=== PATIENT | female | born 1965 | race Caucasian/White ===

== ENCOUNTER 2018-08-13 11:01 | Emergency (ER) | payer BC ==
--- NOTE | 2018-08-13 11:54 | RAD REPORT ---
EXAM DESCRIPTION: CT - Head Brain Wo Cont - 08/13/2018 11:49 am CLINICAL HISTORY: Bilateral lower extremity paresthesias COMPARISON: None. TECHNIQUE: Axial 5 mm thick images of the head were obtained without IV contrast. All CT scans are performed using dose optimization technique as appropriate and may include automated exposure control or mA/KV adjustment according to patient size. FINDINGS: No intracranial hemorrhage, mass, edema or shift of mid-line structures. No acute infarcti on changes seen. No abnormal extra-axial fluid collections. Ventricles are normal. Mastoid air cells and visualized portions of the paranasal sinuses are clear. No acute bony findings. IMPRESSION: Negative non-contrast CT head examination.
[2018-08-13 12:12] LABS: Protime INR 0.9
[2018-08-13 12:13] LABS: Absolute Lymphocytes (CBC) 4.1 K/uL (0.7-4.9); Absolute Monocytes 0.5 K/uL (0.1-1.3); Absolute Neutrophil 6.2 K/uL (1.8-8.0); Basophils % 0.9 % (0-1.3); Lymphocytes % 37.1 % (15.3-44.8); MPV 10.7 fL (7.6-11.3); Monocytes % 4.7 % (3.3-12.3)
[2018-08-13 12:36] LABS: ALT/SGPT 26 U/L (12-78); AST/SGOT 27 U/L (15-37); Albumin 4.4 g/dL (3.4-5.0); Alkaline Phosphatase 79 U/L (45-117); BUN Blood Urea Nitrogen 10 mg/dL (7-18); Bicarbonate 25 mmol/L (21-32); Bilirubin Direct 0.1 mg/dL (0-0.2); Bilirubin Total 0.4 mg/dL (0.2-1.0); CKMB Creatine Kinase MB 1.7 ng/mL (0.3-3.6); Creatine Phosphokinase 118 U/L (26-192); Glucose Level 77 mg/dL (74-106); Magnesium 2.4 mg/dL (1.8-2.4); NT PRO-BNP 69 pg/mL (<125); Potassium 3.6 mmol/L (3.5-5.1); Sodium Level 136 mmol/L (136-145); Troponin (Emerg Dept Use Only) < 0.02 ng/mL (0.0-0.045)
[2018-08-13 12:37] LABS: Urine Blood NEGATIVE (NEG); Urine Glucose NEGATIVE (NEG); Urine Protein NEGATIVE (NEG); Urine Specific Gravity <1.005 (1.005-1.030)
[2018-08-13 12:39] LABS: Blood Morphology Comment NOT SEEN (NOT SEEN); Platelet Estimate ADEQ; Urine White Blood Cell Casts OK
[2018-08-13] MEDS ORDERED: ASPIRIN 81 MG CHEWABLE TABLET ONE (12:51)
--- NOTE | 2018-08-13 14:01 | EKG ---
Test Date: 2018-08-13 Test Time: 12:05:26 Voice Studies Director: NIELS MEASUREMENT RESULTS: Intervals: Rate: 64 AK: 116 QRSD: 76 QT: 406 QTc: 418 Hyrum: P: 61 AK: 116 QRS: 39 T: 35 INTERPRETIVE STATEMENTS: Normal sinus rhythm Normal ECG No previous ECG available for comparison Electronically Signed On 08-13-18 14:00:22 CDT by Joe Palacios
--- NOTE | 2018-08-13 15:22 | RAD REPORT ---
EXAM DESCRIPTION: MRI - Lumbar Spine Wo Con - 08/13/2018 2:56 pm CLINICAL HISTORY: Bilateral leg numbness COMPARISON: None. TECHNIQUE: Sagittal T1, T2 and STIR weighted sequences were obtained. Axial T1 and T2 sequences were obtained through the lumbar disc levels. FINDINGS: L1-2 is unremarkable Mild spondylosis L2-3 Small left lateral disc herniation L3-4 narrows the left neural foramina Mild anterior subluxation L4 on L5. Disc bulge and facet hypertrophy result in narrowing of the theca l sac which measures 6 millimeters. Tiny central disc herniation. Moderate narrowing of the neural fo ramina bilaterally L5-S1 unremarkable Increased signal within the superior vertebral endplates of L3 and L4 may be degenerative in nature IMPRESSION: Mild anterior subluxation L4-L5 in combination with tiny central disc herniation spondyl osis resulting in moderate central and moderate bilateral foraminal stenosis Small left lateral disc herniation L3-4
--- NOTE | 2018-08-13 16:23 | ER ---
Nurse's Notes [facility] Name: Nicky Enrique Age: 53 yrs Sex: Female : 1965 Arrival Date: 08/13/2018 Time: 11:05 Bed 16 Private MD: Diagnosis: Elevated blood-pressure reading, without diagnosis of hypertension;Spondylolysis, lumbar region;Paresthesia of skin-Left and right legs Presentation: 08/13 11:11 Presenting complaint: EMS states: numbness and tingling in both feet that goes up both em thighs, described as "ants going up legs" on scene BP 197/112 HR 69 BLG 65, denies chest pain, NEW, dizziness, N/V. Transition of care: patient was not received from another setting of care. Onset of symptoms was August 13, 2018. Risk Assessment: Do you want to hurt yourself or someone else? Patient reports no desire to harm self or others. Initial Sepsis Screen: Does the patient meet any 2 criteria? No. Patient's initial sepsis screen is negative. Does the patient have a suspected source of infection? No. Patient's initial sepsis screen is negative. Care prior to arrival: None. 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 - Social history:: Smoking status: Patient/guardian denies using tobacco. - Ebola Screening: : Patient negative for fever greater than or equal to 101.5 degrees Fahrenheit, and additional compatible Ebola Virus Disease symptoms Patient denies exposure to infectious person Patient denies travel to an Ebola-affected area in the 21 days before illness onset No symptoms or risks identified at this time. Screenin:09 VAN Screening: Arm Drift: Patient shows no arm weakness. Patient is VAN negative. sg Visual Disturbance: No visual disturbance noted. Aphasia: No aphasia noted. Neglect: No neglect noted. Assessment: 11:15 General: Appears in no apparent distress. slender, well groomed, well developed, well sg nourished, Behavior is calm, cooperative, appropriate for age. Pain: Denies pain. Neuro: Level of Consciousness is awake, alert, obeys commands, Oriented to person, place, time, Stretcher And Drier are equal bilaterally Moves all extremities. Full function Gait is steady, Speech is normal, Facial symmetry appears normal, Pupils are PERRLA, Reports paresthesias in right foot, left foot, right leg and left leg. Cardiovascular: Heart tones S1 S2 present Capillary refill is brisk in bilateral fingers Chest pain is denied. Respiratory: Airway is patent Respiratory effort is even, unlabored, Respiratory pattern is regular, symmetrical. GI: Abdomen is flat, non-distended. : No signs and/or symptoms were reported regarding the genitourinary system. EENT: No signs and/or symptoms were reported regarding the EENT system. Derm: Skin is pink, warm \\T\\ dry. Musculoskeletal: No signs and/or symptoms reported regarding the musculoskeletal system. 13:13 Reassessment: Patient appears in no apparent distress at this time. Patient and/or sg family updated on plan of care and expected duration. Pain level reassessed. Patient is alert, oriented x 3, equal unlabored respirations, skin warm/dry/pink. coreypage at bedside updating pt on POC and results, pt awaiting MRI at this seda. 14:39 Reassessment: pt remains off the unit in MRI at this time. sg 16:00 Reassessment: Patient appears in no apparent distress at this time. Patient and/or sg family updated on plan of care and expected duration. Pain level reassessed. Patient is alert, oriented x 3, equal unlabored respirations, skin warm/dry/pink. reports numbness and tingling in the legs and feet remains, has not worsened Patient states feeling better. Vital Signs: 11:07 BP 159 / 109; Pulse 62; Resp 17; Pulse Ox 100% on R/A; Weight 52.16 kg; Height 5 ft. 2 em in. (157.48 cm); Pain 0/10; 11:19 Temp 98.3; sg 12:20 BP 164 / 97; Pulse 72; Resp 17; Temp 98.9(TE); Pulse Ox 100% on R/A; mh5 13:00 BP 170 / 87; Pulse 64; Resp 16; Temp 97.9(O); Pulse Ox 100% on R/A; mh5 14:32 BP 160 / 86; Pulse 60; Resp 16; Temp 98.9(TE); Pulse Ox 100% on R/A; mh5 15:46 BP 151 / 90; Pulse 62; Resp 16; Pulse Ox 99% on R/A; mh5 11:07 Body Mass Index 21.03 (52.16 kg, 157.48 cm) em ED Course: 11:05 Patient arrived in ED. sg 11:05 Arm band placed on. sg 11:14 Sohail García, RN is Primary Nurse. sg 11:15 No provider procedures requiring assistance completed. sg 11:20 Patient has correct armband on for positive identification. Placed in gown. Bed in low mh5 position. Call light in reach. Side rails up X 1. Adult w/ patient. Warm blanket given. Pulse ox on. NIBP on. 11:21 Caleb Reaves PA is PHCP. cp 11:21 Yazan Joiner MD is Attending Physician. cp 11:22 Triage completed. sg 11:40 Initial lab(s) drawn, by me, sent to lab. Missed attempt(s): 22 gauge in left sg antecubital area. Bleeding controlled, band aid applied, catheter tip intact. 11:50 CT Head Brain wo Cont In Process Unspecified. EDMS 14:30 Patient moved to MRI via wheelchair. em2 14:46 MRI Lumbar Spine wo Con In Process Unspecified. EDMS 14:59 Patient moved back from [facility]. sg 16:19 Ernesto Rizo MD is Referral Physician. cp Administered Medications: 12:37 Drug: Aspirin Chewable Tablet 324 mg Route: PO; sg 13:00 Follow up: Response: No adverse reaction sg 16:30 Not Given (Other Intervention Used): NS 0.9% 1000 ml IV at 1 bolus Per protocol; 1000 sg mL bolus Point of Care Testing: Blood Glucose: 11:19 Blood Glucose: 76 mg/dL; sg Ranges: Outcome: 16:22 Discharge ordered by . cp 16:44 Patient left the ED. ms Signatures: Dispatcher [employer] EDMS Sohail García, RN RN sg Moose Gu, DEVELOPMENT COACH DEVELOPMENT COACH em BenjaminDanielle ms, Enrique em2 Caleb Reaves PA PA cp Martinez, Maria 5 Corrections: (The following items were deleted from the chart) 11:13 11:07 BP 159 / 109; Pulse 62bpm; Resp 17bpm; Pulse Ox 100% RA; sg em
--- NOTE | 2018-08-13 16:23 | EDPHYS ---
Physician Documentation [facility] Name: Nicky Enrique Age: 53 yrs Sex: Female : 1965 Arrival Date: 08/13/2018 Time: 11:05 Bed 16 Private MD: ED Physician Yazan Joiner HPI: 08/13 11:35 This 53 yrs old Female presents to ER via EMS with complaints of High Blood cp Pressure. 11:35 The patient has elevated blood pressure and discovered this at work. cp 11:35 Onset: The symptoms/episode began/occurred this morning. cp 11:35 Associated signs and symptoms: Pertinent positives: numbness bilateral legs to upper cp thigh level started this morning about 0600. Patient noticed while putting pants on to get dressed for work. 11:35 Severity of symptoms: At its worst the blood pressure was 197 mm Hg. 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 - Social history:: Smoking status: Patient/guardian denies using tobacco. - Ebola Screening: : Patient negative for fever greater than or equal to 101.5 degrees Fahrenheit, and additional compatible Ebola Virus Disease symptoms Patient denies exposure to infectious person Patient denies travel to an Ebola-affected area in the 21 days before illness onset No symptoms or risks identified at this time. ROS: 11:40 Constitutional: Negative for body aches, chills, fever, poor PO intake. cp 11:40 Eyes: Negative for injury, pain, redness, and discharge. cp 11:40 ENT: Negative for drainage from ear(s), ear pain, sore throat, difficulty swallowing, difficulty handling secretions. 11:40 Cardiovascular: Negative for chest pain, edema, palpitations. 11:40 Respiratory: Negative for cough, shortness of breath, wheezing. 11:40 Abdomen/GI: Negative for abdominal pain, nausea, vomiting, and diarrhea, constipation, black/tarry stool, rectal bleeding, bowel incontinence. 11:40 Back: Negative for pain at rest, pain with movement, radiated pain. 11:40 : Negative for urinary symptoms, difficulty urinating, bladder incontinence. 11:40 MS/extremity: Negative for injury or acute deformity, decreased range of motion. 11:40 Skin: Negative for cellulitis, rash. 11:40 Neuro: Positive for of the right leg and left leg, decreased sensation, Negative for altered mental status, headache, weakness. 11:40 All other systems are negative. Exam: 11:45 Constitutional: The patient appears in no acute distress, alert, awake, cp non-diaphoretic, non-toxic, well developed, well nourished. 11:45 Head/Face: Normocephalic, atraumatic. cp 11:45 Eyes: Periorbital structures: appear normal, Pupils: equal, round, and reactive to light and accomodation, Extraocular movements: intact throughout, Conjunctiva: normal, no exudate, no injection, Lids and lashes: appear normal, bilaterally. 11:45 ENT: External ear(s): are unremarkable, Ear canal(s): are normal, clear, TM's: bulging, is not appreciated, bilaterally, dullness, bilaterally, erythema, is not appreciated, bilaterally, Nose: is normal, Mouth: Lips: moist, Oral mucosa: pink and intact, moist, Posterior pharynx: is normal, airway is patent, no erythema, no exudate. 11:45 Neck: ROM/movement: is normal, is supple, without pain, no range of motions limitations, no meningismus, no nuchal rigidity. 11:45 Chest/axilla: Inspection: normal, Palpation: is normal, no crepitus, no tenderness. 11:45 Cardiovascular: Rate: normal, Rhythm: regular, Edema: is not appreciated, JVD: is not appreciated. 11:45 Respiratory: the patient does not display signs of respiratory distress, Respirations: normal, no use of accessory muscles, no retractions, no splinting, no tachypnea, labored breathing, is not present, Breath sounds: are clear throughout, no decreased breath sounds, no stridor, no wheezing. 11:45 Abdomen/GI: Inspection: abdomen appears normal, Palpation: abdomen is soft and non-tender, in all quadrants. 11:45 Back: pain, is absent, ROM is normal, Straight leg raises: of both lower extremities does not illicit pain. 11:45 Musculoskeletal/extremity: Pulses: noted to be 2+ in the right radial artery, right dorsalis pedis artery, left radial artery and left dorsalis pedis artery, the right leg and left leg decreased sensation. 11:45 Skin: no rash present. 11:45 Neuro: Orientation: to person, place \T\ time. Mentation: is normal, Cerebellar function: Romberg testing is negative, normal finger to nose testing, heel to powers testing is normal, Motor: moves all fours, strength is normal, Gait: is steady, Deep tendon reflexes are 2+ (normal) in the right patellar, right Achilles, left patellar and left Achilles. 12:10 ECG was reviewed by the Attending Physician. cp Vital Signs: 11:07 BP 159 / 109; Pulse 62; Resp 17; Pulse Ox 100% on R/A; Weight 52.16 kg; Height 5 ft. 2 em in. (157.48 cm); Pain 0/10; 11:19 Temp 98.3; sg 12:20 BP 164 / 97; Pulse 72; Resp 17; Temp 98.9(TE); Pulse Ox 100% on R/A; mh5 13:00 BP 170 / 87; Pulse 64; Resp 16; Temp 97.9(O); Pulse Ox 100% on R/A; mh5 14:32 BP 160 / 86; Pulse 60; Resp 16; Temp 98.9(TE); Pulse Ox 100% on R/A; mh5 15:46 BP 151 / 90; Pulse 62; Resp 16; Pulse Ox 99% on R/A; mh5 11:07 Body Mass Index 21.03 (52.16 kg, 157.48 cm) em MDM: 11:21 Patient medically screened. cp 12:00 Differential diagnosis: hypertensive crisis, Malignant HTN, CVA, intracerebral cp hemorrhage, spinal stenosis, cauda equina, bulging disc. 16:21 Data reviewed: vital signs, nurses notes, lab test result(s), EKG, radiologic studies, cp CT scan, MRI. 16:21 Test interpretation: by ED physician or midlevel provider: ECG. Counseling: I had a cp detailed discussion with the patient and/or guardian regarding: the historical points, exam findings, and any diagnostic results supporting the discharge/admit diagnosis, the presence of at least one elevated blood pressure reading (>120/80) during this emergency department visit, lab results, radiology results, the need for outpatient follow up, a family practitioner, a neurosurgeon, to return to the emergency department if symptoms worsen or persist or if there are any questions or concerns that arise at home. Response to treatment: the patient's symptoms have mildly improved after treatment, and as a result, I will discharge patient. ED course: VSS. Blood pressure improved. Will discharge to home for continued monitoring. 08/13 11:34 Order name: Basic Metabolic Panel; Complete Time: 13:10 cp 08/13 11:34 Order name: CBC with Diff; Complete Time: 13:10 cp 08/13 13:09 Interpretation: Normal except: WBC 11.0. cp 08/13 11:34 Order name: LFT's; Complete Time: 13:10 cp 08/13 11:34 Order name: Magnesium; Complete Time: 13:10 cp 08/13 11:34 Order name: NT PRO-BNP; Complete Time: 13:10 cp 08/13 11:34 Order name: PT-INR; Complete Time: 13:10 cp 08/13 11:34 Order name: CT Head Brain wo Cont; Complete Time: 11:57 cp 08/13 12:14 Interpretation: Report reviewed. 08/13 11:34 Order name: Troponin (emerg Dept Use Only); Complete Time: 13:10 cp 08/13 13:09 Interpretation: TROPED < 0.02; Reviewed. 08/13 11:34 Order name: Ckmb; Complete Time: 13:10 cp 08/13 11:34 Order name: CK; Complete Time: 13:10 cp 08/13 11:53 Order name: Test, Serum; Complete Time: 13:10 hb 08/13 12:00 Order name: Urine Dipstick--Ancillary (enter results); Complete Time: 13:10 ms 08/13 12:41 Order name: CBC Smear Scan; Complete Time: 13:10 EDMS 08/13 13:12 Order name: MRI Lumbar Spine wo Con; Complete Time: 15:51 cp 08/13 11:34 Order name: Accucheck Blood Glucose; Complete Time: 11:47 cp 08/13 11:34 Order name: EKG; Complete Time: 11:39 cp 08/13 11:34 Order name: Cardiac monitoring; Complete Time: 11:48 cp 14 11:34 Order name: EKG - Nurse/Tech; Complete Time: 13:25 cp 08/13 11:34 Order name: IV Saline Lock; Complete Time: 11:47 cp 14 11:34 Order name: Labs collected and sent; Complete Time: 11:47 cp 14 11:34 Order name: O2 Per Protocol; Complete Time: 11:47 cp 08/13 11:34 Order name: O2 Sat Monitoring; Complete Time: 11:47 cp 14 11:34 Order name: Urine Dipstick-Ancillary (obtain specimen); Complete Time: 11:47 cp 14 11:34 Order name: Urine Test (obtain specimen); Complete Time: 11:47 cp EC:10 Rate is 64 beats/min. Rhythm is regular. NH interval is normal. QRS interval is normal. cp QT interval is normal. Interpreted by me. Reviewed by me. Administered Medications: 12:37 Drug: Aspirin Chewable Tablet 324 mg Route: PO; sg 13:00 Follow up: Response: No adverse reaction sg 16:30 Not Given (Other Intervention Used): NS 0.9% 1000 ml IV at 1 bolus Per protocol; 1000 sg mL bolus Point of Care Testing: Blood Glucose: 11:19 Blood Glucose: 76 mg/dL; sg Ranges: Critical Glucose Levels:Adult <50 mg/dl or >400 mg/dl <40 mg/dl or >180 mg/dl Disposition: 18:08 Co-signature as Attending Physician, Yazan Joiner MD I agree with the assessment and kdr plan of care. Disposition: 08/13/18 16:22 Discharged to Home. Impression: Elevated blood-pressure reading, without diagnosis of hypertension, Spondylolysis, lumbar region, Paresthesia of skin - Left and right legs. - Condition is Stable. - Discharge Instructions: Paresthesia, How to Take Your Blood Pressure, [id number], Form - Blood Pressure Record Sheet. - Prescriptions for Cyclobenzaprine 10 mg Oral Tablet - take 1 tablet by ORAL route every 8 hours As needed no driving while taking medication; 20 tablet. Medrol (Victor Manuel) 4 mg Oral Tablets, Dose Pack - take 1 tablet by ORAL route as directed - follow package instructions; 1 packet. - Medication Reconciliation Form, Thank You Letter, Antibiotic Education, Prescription Opioid Use form. - Follow up: Ernesto Rizo MD; When: 2 - 3 days; Reason: spondylosis, disc herniation. Follow up: Private Physician; When: 2 - 3 days; Reason: elevated blood pressure. - Problem is new. - Symptoms have improved. Signatures: Dispatcher [employer] EDMS Sohail García RN RN sg Yazan Joiner MD MD [facility] Danielle Benjamin ms Caleb Reaves PA PA cp Corrections: (The following items were deleted from the chart) 16:44 16:22 08/13/2018 16:22 Discharged to Home. Impression: Elevated blood-pressure reading, ms without diagnosis of hypertension; Spondylolysis, lumbar region; Paresthesia of skin - Left and right legs. Condition is Stable. Forms are Medication Reconciliation Form, Thank You Letter, Antibiotic Education, Prescription Opioid Use. Follow up: Ernesto Rizo; When: 2 - 3 days; Reason: spondylosis, disc herniation. Follow up: Private Physician; When: 2 - 3 days; Reason: elevated blood pressure. Problem is new. Symptoms have improved. cp 08/14 16:18 08/13 11:35 Modifying factors: The symptoms are aggravated by cp cp
== END 2018-08-13 16:44 | disposition home or self-care (01) ==
LOC: ER 11:01
DX: R03.0 Elevated blood-pressure reading, without diagnosis of hypertension (principal); M47.896 Other spondylosis, lumbar region
CPT/HCPCS: 36415; 70450; 72148; 80048; 80076; 81003; 82550; 82553; 82962; 83735; 83880; 84484; 84703; 85025; 85610; 93005; 99284